=== PATIENT | male | born 1965 | race Caucasian/White ===

== ENCOUNTER 2024-07-31 16:10 | Inpatient (IN) | payer OTHER, SELFPAY ==
[2024-07-31] VITALS (8 sets, daily range): BP systolic 94–139; BP diastolic 48–82; BMI 28.2; BMI 28.3
[2024-07-31 04:15] LABS: % Basophils 1.1 % (0-2); % Eosinophils 10.9 % (0-6); % Immature Granulocytes 0.4 % (0-0.5); % Monocytes 8.1 % (1.7-9.3); % Neutrophils 60.5 % (42.2-75.2); Absolute Basophils 0.1 10^3/uL (0-0.2); Absolute Eosinophils 0.9 10^3/uL (0-0.7); Absolute Lymphocytes 1.6 10^3/uL (1.2-3.4); Absolute Monocytes 0.7 10^3/uL (0.1-0.6); Absolute Neutrophils 5.1 10^3/uL (1.4-6.5); Hematocrit 39.3 % (39.0-52.0); Hemoglobin 13.8 g/dL (13.0-18.0); Mean Corp Hgb Conc. 35.1 g/dL (33.0-37.0); Mean Corpuscular Hgb 31.7 pg (27.0-31.0); Mean Corpuscular Volume 90.3 fL (80.0-94.0); Mean Platelet Volume 9.8 fL (7.4-10.4); Nucleated Red Blood Cells % 0.2 % (-); Platelet Count 234 10^3/uL (130-400); Red Blood Cell Count 4.35 10^6/uL (4.70-6.10); Red Cell Dist. Width 13.8 % (11.5-14.5); White Blood Cell Count 8.4 10^3/uL (4.8-10.8)
[2024-07-31 04:24] LABS: INR 1.92; PT 22.1 Sec (11.4-14.6)
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
[2024-07-31 04:43] LABS: ALT (SGPT) 31 U/L (0-50); AST (SGOT) 33 U/L (17-59); Alkaline Phosphatase 82 U/L (38-126); Blood Urea Nitrogen 32 mg/dl (9-20); Calcium 8.9 mg/dl (8.4-10.2); Carbon Dioxide 23 mmol/L (22-30); Chloride 111 mmol/L (98-107); Estimated Creatinine Clearance 73 ml/min; Glucose 114 mg/dl (70-99); Potassium 4.1 mmol/L (3.5-5.1); Sodium 143 mmol/L (135-145); Total Bilirubin 0.5 mg/dl (0.2-1.3); Total Protein 6.8 g/dl (6.3-8.2); eGFR > 60.00
[2024-07-31] MEDS: MORPHINE SULFATE 4 MG IV (04:45)
[2024-07-31] MEDS: ZOSYN 50 IV ×4 (04:47→22:02)
[2024-07-31] MEDS: VANCOCIN 540 MG IV (05:25)
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
--- NOTE | 2024-07-31 08:01 | PHA.VAN.IN ---
Assessment
- Assessment
Renal Function: Appears similar to baseline
AUC Dosing Plan
- Dosing Variables
Dosing Weight (kg): 79
Dosing CrCl (ml/min): 73
Vd coefficient (L/kg): 0.7
- Empiric Dosing
Initial / Loading Dose: 2000mg - 07/31 05:25
Maintenance Regimen: Vanc 750mg Q12H starting at 1800
Estimated AUC (mcg*h/mL): 431
Estimated Peak (mcg*h/mL): 25
Estimated Trough (mcg/ml): 12.3
Estimated Half Life (H): 10.7
- Monitoring
No levels ordered at this time: consider levels in next few days
Pharmacokinetics Vancomycin I
- -
Patient Age: 59
Patient Sex: Male
Vancomycin Day #: 1
Indication: Skin And Soft Tissue
Requesting Provider: Haresh Adrian
Pertinent Antimicrobial Allergies:
sulfonamide antibiotics - rash
Height / Weight:
Height 5 ft 6 in
Actual Weight 79.3 kg
- Vital Signs / Lab Results
Temp Pulse Resp BP Pulse Ox
98.8 F 68 18 94/48 93
07/31/24 03:03 07/31/24 05:00 07/31/24 05:00 07/31/24 06:00 07/31/24 06:00
Lab Results - Hematology
07/31/24
04:04
WBC 8.4
Lab Results - Chemistry
07/31/24
04:04
BUN 32 H
Creatinine 1.0
Estimated Creat Clear 73
Albumin 4.0
07/31/24 07/31/24
04:04 08:15
Lactic Acid 1.0 Cancelled
--- NOTE | 2024-07-31 08:11 | PHANOTE ---
med rec note- patient currently not filling Norvasc or Flomax
[2024-07-31] MEDS: PROTONIX 20 MG PO (08:38)
[2024-07-31] MEDS: NORVASC 2.5 MG PO (08:38)
[2024-07-31] MEDS: FLOMAX 0.4 MG PO (08:38)
--- NOTE | 2024-07-31 09:35 | W.PN.HOSP.TC ---
Today's Communication/Plan
-
See plan
Assessment / Plan
Assessment / Plan
Impression:
Left lower extremity cellulitis
Other conditions:
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 Status post IAT 07/06.
History of lower extremity DVT and PE
Anticoagulation with Coumadin.
Essential hypertension
Dyslipidemia
BPH
Multisubstance abuse (methamphetamine, fentanyl, EtOH)
Tobacco use disorder
Plan:
Left lower extremity cellulitis
Nonpurulent
Extensive area of involvement from left knee to the foot.
No systemic symptoms on presentation
Reasonable concern for NF
Check CT scan of the left lower extremity rule out collection no necrotizing fasciitis
Broad-spectrum antibiotics: Vancomycin/Zosyn
ID consultation
Close clinical monitoring
History of left MCA territory infarct in the settings of methamphetamine use requiring IAT.
Currently not on any antiplatelet agents.
Essential hypertension.
Dyslipidemia.
Continue amlodipine and Norvasc
History of DVT with extensive PE with right heart strain/cor pulmonale.
Update lower extremity Doppler
Continue Coumadin with goal of INR 2-3. Adjust Coumadin dosing if required while on antibiotics
Patient previously on Eliquis could not recall reasoning for Coumadin transitioning.
BPH with history of retention.
Continue Flomax
Polysubstance abuse.
Patient denies current use
Urine drug screen
Full code
DVT prophylaxis/Coumadin
Anticipated Discharge: 24 - 48 hours
Subjective/Interval History
-
Date of Service: July 31, 2024
Objective Data
-
Labs:
Laboratory Results
07/31/24 07/31/24
04:04 04:07
WBC 8.4
Hgb 13.8
Hct 39.3
Plt Count 234
PT 22.1 H
INR 1.92
Sodium 143
Potassium 4.1
Chloride 111 H
Carbon Dioxide 23
BUN 32 H
Creatinine 1.0
Glucose 114 H
Calcium 8.9
Total Bilirubin 0.5
AST 33
ALT 31
Alkaline Phosphatase 82
Vital Signs:
Vital Signs
Temp Pulse Resp BP Pulse Ox
98.4 F 69 16 100/63 95
07/31/24 08:51 07/31/24 08:51 07/31/24 08:51 07/31/24 08:51 07/31/24 08:51
Physical Exam
-
General: Well Developed and No Apparent Distress
HEENT: Normocephalic, Atraumatic and Moist Mucous Membranes
Respiratory: Clear to Auscultation
Cardiac: Regular Rhythm and S1/S2; Negative Murmur, Rub or Gallop
GI: Soft, Nontender, Nondistended and Normal Bowel Sounds; Negative Organomegaly
Rectal: Deferred by Provider
Musculoskeletal: No Clubbing, No Cyanosis and No Edema
Skin: Other (Left lower extremity erythema, induration and tenderness on palpation without fluctuance. Extensive area of involvement from ankle to knee.); Negative Rash
Neuro: Nonfocal/Grossly Intact
[2024-07-31] MEDS: VANCOCIN 150 IV (17:33)
[2024-07-31] MEDS: COUMADIN 7.5 MG PO (17:33)
[2024-07-31] MEDS: LIPITOR 40 MG PO (17:33)
[2024-07-31 17:58] LABS: Amphetamines Positive (Negative); Barbiturates Negative (Negative); Benzodiazepines Negative (Negative); Buprenorphine Negative (Negative); Cocaine Negative (Negative); Marijuana Negative (Negative); Methadone Negative (Negative); Methamphetamines Positive (Negative); Opiates Positive (Negative); Phencyclidine Negative (Negative); Tricyclic Antidepressants Negative (Negative)
[2024-07-31 18:17] LABS: Fentanyl, Urine Negative (Negative)
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
[2024-08-01] MEDS: ZOSYN 50 IV ×4 (04:03→21:23)
[2024-08-01] MEDS: VANCOCIN 150 IV ×2 (05:26→17:10)
[2024-08-01 07:13] VITALS: BP 123/76
[2024-08-01 08:03] LABS: % Basophils 0.7 % (0-2); % Immature Granulocytes 0.1 % (0-0.5); % Lymphocytes 15.9 % (20.5-51.1); % Monocytes 7.4 % (1.7-9.3); % Neutrophils 62.9 % (42.2-75.2); Absolute Basophils 0.1 10^3/uL (0-0.2); Absolute Eosinophils 0.9 10^3/uL (0-0.7); Absolute Lymphocytes 1.1 10^3/uL (1.2-3.4); Absolute Monocytes 0.5 10^3/uL (0.1-0.6); Absolute Neutrophils 4.2 10^3/uL (1.4-6.5); Hematocrit 39.5 % (39.0-52.0); Hemoglobin 13.9 g/dL (13.0-18.0); Mean Corp Hgb Conc. 35.2 g/dL (33.0-37.0); Mean Corpuscular Hgb 31.6 pg (27.0-31.0); Mean Corpuscular Volume 89.8 fL (80.0-94.0); Mean Platelet Volume 9.8 fL (7.4-10.4); Nucleated Red Blood Cells % 0 % (-); Platelet Count 235 10^3/uL (130-400); Red Cell Dist. Width 13.5 % (11.5-14.5); White Blood Cell Count 6.8 10^3/uL (4.8-10.8)
[2024-08-01 08:12] LABS: INR 2.98; PT 31.3 Sec (11.4-14.6)
[2024-08-01] MEDS: FLOMAX 0.4 MG PO (09:49)
[2024-08-01] MEDS: NORVASC 2.5 MG PO (09:49)
[2024-08-01] MEDS: PROTONIX 20 MG PO (09:49)
[2024-08-01 11:07] LABS: Blood Urea Nitrogen 19 mg/dl (9-20); Calcium 8.2 mg/dl (8.4-10.2); Carbon Dioxide 23 mmol/L (22-30); Chloride 109 mmol/L (98-107); Estimated Creatinine Clearance 81 ml/min; Glucose 103 mg/dl (70-99); Sodium 138 mmol/L (135-145); eGFR > 60.00
[2024-08-01 11:23] LABS: Potassium 4.6 mmol/L (3.5-5.1)
--- NOTE | 2024-08-01 14:12 | W.PN.HOSP.TC ---
Today's Communication/Plan
-
Continue IV antibiotics and monitor response closely.
Follow blood cultures.
Hold Coumadin tonight (INR 2.98)
Assessment / Plan
Assessment / Plan
Impression:
Left lower extremity cellulitis
Other conditions:
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 Status post IAT 07/06.
History of lower extremity DVT and PE
Anticoagulation with Coumadin.
Essential hypertension
Dyslipidemia
BPH
Multisubstance abuse (methamphetamine, fentanyl, EtOH)
Tobacco use disorder
Plan:
Left lower extremity cellulitis
Nonpurulent
Extensive area of involvement from left knee to the foot.
No systemic symptoms on presentation
Reasonable concern for NF
Check CT scan of the left lower extremity with no evidence of soft tissue collection or gas. Consistent with cellulitis
Noted some improvement with reduction of area induration and erythema today on 08/01
Continue IV antibiotics, currently on vancomycin and Zosyn
Close clinical monitoring
History of left MCA territory infarct in the settings of methamphetamine use requiring IAT.
Currently not on any antiplatelet agents.
Essential hypertension.
Dyslipidemia.
Continue amlodipine and Norvasc
History of DVT with extensive PE with right heart strain/cor pulmonale.
Update lower extremity Doppler
Continue Coumadin with goal of INR 2-3. Adjust Coumadin dosing if required while on antibiotics
Patient previously on Eliquis could not recall reasoning for Coumadin transitioning.
BPH with history of retention.
Continue Flomax
Polysubstance abuse.
Patient denies current use
Urine drug screen positive for opiates, amphetamines methamphetamines
Full code
DVT prophylaxis/Coumadin
Anticipated Discharge: 24 - 48 hours
Subjective/Interval History
-
Date of Service: August 01, 2024
Objective Data
-
Labs:
Laboratory Results
06/26/25
07:37
WBC 6.8
Hgb 13.9
Hct 39.5
Plt Count 235
PT 31.3 H
INR 2.98
Sodium 138
Potassium 4.6
Chloride 109 H
Carbon Dioxide 23
BUN 19
Creatinine 0.9
Glucose 103 H
Calcium 8.2 L
Vital Signs:
Vital Signs
Temp Pulse Resp BP Pulse Ox
97.4 F 65 18 123/76 97
08/01/24 07:13 08/01/24 09:49 08/01/24 07:13 08/01/24 09:49 08/01/24 07:13
I&O
07/31/24 08/01/24 08/02/24
06:59 06:59 06:59
Intake Total 790 / 790
Output Total 1625 / 1625
Balance -835 / -835
Physical Exam
-
General: Well Developed and No Apparent Distress
HEENT: Normocephalic, Atraumatic and Moist Mucous Membranes
Respiratory: Clear to Auscultation
Cardiac: Regular Rhythm and S1/S2; Negative Murmur, Rub or Gallop
GI: Soft, Nontender, Nondistended and Normal Bowel Sounds; Negative Organomegaly
Rectal: Deferred by Provider
Musculoskeletal: No Clubbing, No Cyanosis and No Edema
Skin: Other (Left lower extremity erythema, induration and tenderness on palpation without fluctuance. Extensive area of involvement from ankle to knee.); Negative Rash
Neuro: Nonfocal/Grossly Intact
--- NOTE | 2024-08-01 15:05 | CM ---
corridor redevelopment manager reviewed patient's chart and met with patient and patient reports that his significant other lives with him patient is independent with adl's and ambulation, no dme, patient states he does not have a PCP.
Pharmacy: [facility].
Plan; Home when stable.
[2024-08-01 15:46] VITALS: BP 108/60
--- NOTE | 2024-08-01 16:31 | PHA.VAN.FU ---
Vancomycin Assessment / Plan
- Assessment
Renal Function: Stable
WBC's are: WNL
In the past 24 hrs, patient has been: Afebrile
Concomitant Antimicrobials: piperacillin/tazobactam
- Dosing Plan
Continue: Vanc 750mg Q12H
- Monitoring Plan
No level(s) ordered at this time: consider levels in next few days
- Follow Up
Pharmacy will continue to follow.
Vancomycin Follow UP
- -
Patient Age: 59
Patient Sex: Male
Vancomycin Day #: 2
Indication: Skin And Soft Tissue
Requesting Provider: Haresh Adrian / Dr. Tipton
Pertinent Antimicrobial Allergies:
sulfonamide antibiotics - rash
Height / Weight:
Height 5 ft 6 in
Actual Weight 79.56 kg
- Vital Signs / Lab Results
Temp Pulse Resp BP Pulse Ox
97.4 F 65 18 108/60 100
08/01/24 15:46 08/01/24 15:46 08/01/24 15:46 08/01/24 15:46 08/01/24 15:46
Lab Results - Hematology
07/31/24 08/01/24
04:04 07:37
WBC 8.4 6.8
Lab Results - Chemistry
07/31/24 08/01/24
04:04 07:37
BUN 32 H 19
Creatinine 1.0 0.9
Estimated Creat Clear 73 81
Albumin 4.0
07/31/24 07/31/24
04:04 08:15
Lactic Acid 1.0 Cancelled
Microbiology Results
07/31/24 04:17 Blood Culture - Preliminary
Blood/Venous No Growth in 24 hours- Final report to follow
07/31/24 04:04 Blood Culture - Preliminary
Blood/Venous No Growth in 24 hours- Final report to follow
07/31/24 08:37 Nasal Screen MRSA (PCR) - Final
Nose MRSA not detected - performed by PCR methodology.
[2024-08-01] MEDS: LIPITOR 40 MG PO (17:10)
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
[2024-08-01 23:00] VITALS: BP 130/67
[2024-08-02] MEDS: ZOSYN 50 IV ×4 (04:56→21:16)
[2024-08-02] MEDS: VANCOCIN 150 IV (05:54)
[2024-08-02 07:25] VITALS: BP 111/73
[2024-08-02] MEDS: PROTONIX 20 MG PO (09:07)
[2024-08-02] MEDS: NORVASC 2.5 MG PO (09:07)
[2024-08-02] MEDS: FLOMAX 0.4 MG PO (09:08)
[2024-08-02 09:18] LABS: % Basophils 0.5 % (0-2); % Eosinophils 15.5 % (0-6); % Immature Granulocytes 0.3 % (0-0.5); % Lymphocytes 13.3 % (20.5-51.1); % Neutrophils 63.4 % (42.2-75.2); Absolute Eosinophils 1.2 10^3/uL (0-0.7); Absolute Monocytes 0.5 10^3/uL (0.1-0.6); Absolute Neutrophils 4.8 10^3/uL (1.4-6.5); Hematocrit 46.2 % (39.0-52.0); Hemoglobin 16.1 g/dL (13.0-18.0); Mean Corp Hgb Conc. 34.8 g/dL (33.0-37.0); Mean Corpuscular Hgb 31.3 pg (27.0-31.0); Mean Corpuscular Volume 89.9 fL (80.0-94.0); Mean Platelet Volume 9.7 fL (7.4-10.4); Nucleated Red Blood Cells % 0 % (-); Platelet Count 271 10^3/uL (130-400); Red Blood Cell Count 5.14 10^6/uL (4.70-6.10); Red Cell Dist. Width 13.6 % (11.5-14.5); White Blood Cell Count 7.5 10^3/uL (4.8-10.8)
[2024-08-02 09:27] LABS: INR 2.39; PT 26.1 Sec (11.4-14.6)
[2024-08-02 09:44] LABS: Blood Urea Nitrogen 14 mg/dl (9-20); Calcium 8.8 mg/dl (8.4-10.2); Carbon Dioxide 22 mmol/L (22-30); Chloride 109 mmol/L (98-107); Estimated Creatinine Clearance 73 ml/min; Glucose 112 mg/dl (70-99); Potassium 4.4 mmol/L (3.5-5.1); Sodium 139 mmol/L (135-145); eGFR > 60.00
--- NOTE | 2024-08-02 11:26 | CM ---
Chart reviewed, plan is to home when stable.
Plan; Home when stable.
--- NOTE | 2024-08-02 13:46 | W.PN.HOSP.TC ---
Today's Communication/Plan
-
Significant improvement, although remains with significant cellulitic area
Continue IV antibiotics for another 24 to 48 hours
Urine drug screen noted with multisubstance including methamphetamine, although so far with no evidence of withdrawal. Monitor closely..
Assessment / Plan
Assessment / Plan
Impression:
Left lower extremity cellulitis
Other conditions:
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 Status post IAT 07/06.
History of lower extremity DVT and PE
Anticoagulation with Coumadin.
Essential hypertension
Dyslipidemia
BPH
Multisubstance abuse (methamphetamine, fentanyl, EtOH)
Tobacco use disorder
Plan:
Left lower extremity cellulitis
Nonpurulent
Extensive area of involvement from left knee to the foot.
No systemic symptoms on presentation
Reasonable concern for NF
Check CT scan of the left lower extremity with no evidence of soft tissue collection or gas. Consistent with cellulitis
Noted some improvement with reduction of area induration and erythema today on 08/01
Continue IV antibiotics. Empiric treatment with vancomycin and Zosyn. MRSA negative. Antibiotics narrowed to Zosyn alone.
Close clinical monitoring
History of left MCA territory infarct in the settings of methamphetamine use requiring IAT.
Currently not on any antiplatelet agents.
Essential hypertension.
Dyslipidemia.
Continue amlodipine and Norvasc
History of DVT with extensive PE with right heart strain/cor pulmonale.
Update lower extremity Doppler
Continue Coumadin with goal of INR 2-3. Adjust Coumadin dosing if required while on antibiotics
Patient previously on Eliquis could not recall reasoning for Coumadin transitioning.
BPH with history of retention.
Continue Flomax
Polysubstance abuse.
Patient denies current use
Urine drug screen positive for opiates, amphetamines methamphetamines
Full code
DVT prophylaxis/Coumadin
Anticipated Discharge: 24 - 48 hours
Subjective/Interval History
-
Date of Service: August 02, 2024
Objective Data
-
Labs:
Laboratory Results
08/02/24
08:52
WBC 7.5
Hgb 16.1
Hct 46.2
Plt Count 271
PT 26.1 H
INR 2.39
Sodium 139
Potassium 4.4
Chloride 109 H
Carbon Dioxide 22
BUN 14
Creatinine 1.0
Glucose 112 H
Calcium 8.8
Vital Signs:
Vital Signs
Temp Pulse Resp BP Pulse Ox
97.5 F 61 16 111/73 97
08/02/24 07:25 08/02/24 09:07 08/02/24 07:25 08/02/24 09:07 08/02/24 08:26
I&O
08/01/24 08/02/24 08/03/24
06:59 06:59 06:59
Intake Total 790 / 790 960 / 960
Output Total 1625 / 1625 2800 / 2800
Balance -835 / -835 -1840 / -1840
Physical Exam
-
General: Well Developed and No Apparent Distress
HEENT: Normocephalic, Atraumatic and Moist Mucous Membranes
Respiratory: Clear to Auscultation
Cardiac: Regular Rhythm and S1/S2; Negative Murmur, Rub or Gallop
GI: Soft, Nontender, Nondistended and Normal Bowel Sounds; Negative Organomegaly
Rectal: Deferred by Provider
Musculoskeletal: No Clubbing, No Cyanosis and No Edema
Skin: Other (Left lower extremity erythema, induration and tenderness on palpation without fluctuance. Extensive area of involvement from ankle to knee.); Negative Rash
Neuro: Nonfocal/Grossly Intact
[2024-08-02] MEDS: HYDROPHOR 1 APPLIC TOPICAL (15:11)
[2024-08-02] MEDS: LIPITOR 40 MG PO (15:15)
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
[2024-08-02 15:41] VITALS: BP 112/77
[2024-08-02 23:46] VITALS: BP 114/60
[2024-08-03] MEDS: ZOSYN 50 IV ×4 (03:47→21:07)
[2024-08-03 07:13] VITALS: BP 135/75
[2024-08-03] MEDS: PROTONIX 20 MG PO (08:25)
[2024-08-03] MEDS: FLOMAX 0.4 MG PO (08:25)
[2024-08-03] MEDS: NORVASC 2.5 MG PO (08:25)
[2024-08-03] MEDS: HYDROPHOR 1 APPLIC TOPICAL ×2 (08:33→16:12)
--- NOTE | 2024-08-03 14:52 | W.PN.HOSP.TC ---
Today's Communication/Plan
-
Continue current care
Assessment / Plan
Assessment / Plan
Impression:
Left lower extremity cellulitis
Other conditions:
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 Status post IAT 07/06.
History of lower extremity DVT and PE
Anticoagulation with Coumadin.
Essential hypertension
Dyslipidemia
BPH
Multisubstance abuse (methamphetamine, fentanyl, EtOH)
Tobacco use disorder
Plan:
1. Left lower extremity cellulitis, Nonpurulent with Extensive area of involvement from left knee to the foot.
No systemic symptoms on presentation
Reasonable concern for NF
Checked CT scan of the left lower extremity with no evidence of soft tissue collection or gas. Consistent with cellulitis
Noted some improvement with reduction of area induration and erythema today on 08/01
Continue IV antibiotics.
Empiric treatment with vancomycin and Zosyn.
MRSA negative.
Antibiotics narrowed to Zosyn alone.
Close clinical monitoring
2. History of left MCA territory infarct in the settings of methamphetamine use requiring IAT.
Currently not on any antiplatelet agents.
Essential hypertension.
Dyslipidemia.
Continue amlodipine and Norvasc
3. History of DVT with extensive PE with right heart strain/cor pulmonale.
Update lower extremity Doppler
Continue Coumadin with goal of INR 2-3. INR today 2.39
Adjust Coumadin dosing if required while on antibiotics
Patient previously on Eliquis could not recall reasoning for Coumadin transitioning.
4. BPH with history of retention.
Continue Flomax
5. Polysubstance abuse.
Patient denies current use
Urine drug screen positive for opiates, amphetamines methamphetamines
Full code
DVT prophylaxis/Coumadin
Anticipated Discharge: 24 - 48 hours
Subjective/Interval History
-
Date of Service: August 03, 2024
No new issues or complaints
Objective Data
-
Vital Signs:
Vital Signs
Temp Pulse Resp BP Pulse Ox
97.7 F 64 18 135/75 96
08/03/24 07:13 08/03/24 08:25 08/03/24 07:13 08/03/24 08:25 08/03/24 07:13
I&O
08/02/24 08/03/24 08/04/24
06:59 06:59 06:59
Intake Total 960 / 960 1440 / 1440
Output Total 2800 / 2800 700 / 700
Balance -1840 / -1840 740 / 740
Review of Systems
-
History Source: Patient
All other systems: Reviewed and negative
Physical Exam
-
General: Well Developed, Well Nourished, No Apparent Distress and Comfortable
HEENT: Nose Appears Normal and Ears Appear Normal
Respiratory: Clear to Auscultation
Cardiac: Regular Rhythm and S1/S2
GI: Soft, Nontender and Nondistended
Musculoskeletal: No Clubbing and No Cyanosis
Skin: Warm and Dry
Neuro: Awake, Alert and Oriented
Psych: Calm
Data Reviewed
-
Labs: Labs Reviewed by me
[2024-08-03 15:39] VITALS: BP 117/55
[2024-08-03] MEDS: LIPITOR 40 MG PO (16:12)
[2024-08-03 23:02] VITALS: BP 107/59
[2024-08-04] MEDS: ZOSYN 50 IV ×3 (03:06→21:55)
[2024-08-04 06:47] LABS: Hematocrit 41.5 % (39.0-52.0); Hemoglobin 14.5 g/dL (13.0-18.0); Mean Corp Hgb Conc. 34.9 g/dL (33.0-37.0); Mean Corpuscular Hgb 31.3 pg (27.0-31.0); Mean Corpuscular Volume 89.4 fL (80.0-94.0); Platelet Count 264 10^3/uL (130-400); Red Blood Cell Count 4.64 10^6/uL (4.70-6.10); Red Cell Dist. Width 13.5 % (11.5-14.5); White Blood Cell Count 6.9 10^3/uL (4.8-10.8)
[2024-08-04 06:57] LABS: INR 1.36
[2024-08-04 07:19] LABS: Blood Urea Nitrogen 18 mg/dl (9-20); Calcium 8.7 mg/dl (8.4-10.2); Carbon Dioxide 24 mmol/L (22-30); Chloride 109 mmol/L (98-107); Estimated Creatinine Clearance 73 ml/min; Glucose 100 mg/dl (70-99); Potassium 4.3 mmol/L (3.5-5.1); Sodium 141 mmol/L (135-145); eGFR > 60.00
[2024-08-04 07:37] VITALS: BP 109/67
[2024-08-04] MEDS: PROTONIX 20 MG PO (08:20)
[2024-08-04] MEDS: NORVASC 2.5 MG PO (08:20)
[2024-08-04] MEDS: FLOMAX 0.4 MG PO (08:20)
--- NOTE | 2024-08-04 11:37 | W.PN.ID1 ---
Date of Service
Date of Service: August 04, 2024
Today's Communication
Continue antibiotics.
Assessment / Plan
LLE cellulitis; improved.
Hx EtOH use/abuse
Hx CVA (MCA territory)
Hx PE
Polysubstance abuse (UDS with positive for opiates, amphetamines methamphetamines)
Recommendations:
Narrow abx to cefazolin 2 gm IV q8h
At D/C, transition to oral keflex 500mg QID, to continue through 08/11/2024
����������������������������������������������������������
Chief Complaint
-: Cellulitis (CT without abscess, ostomyelitis ) and Other (left ankle pain)
Subjective / Review of Systems
Patient seen and examined. Reports marked improvement in LLE / ankle discomfort.
Review of Systems: No Fever and No Chills
Vital Signs / Physical Exam
Vital Signs
Vital Signs
Temp Pulse Resp BP Pulse Ox
97.7 F 62 20 109/67 97
08/04/24 07:37 08/04/24 07:37 08/04/24 07:37 08/04/24 07:37 08/04/24 07:37
Physical Exam
Constitutional: No Acute Distress and Comfortable
Eyes: Sclera Anicteric
Cardiovascular: S1/S2; Negative S3/S4
Pulmonary: Non Labored
Gastrointestinal: Soft and Non Tender
Extremities: Other (Erythema and superficial crusting noted of the left medial ankle/distal calf.)
Neurological: Awake and Alert
Psychological: Calm
Objective Data
Lab Data
Lab Results
08/04/24 05:40
08/04/24 05:40
PT 17.0 Sec (11.4-14.6) H 08/04/24 05:40
INR 1.36 08/04/24 05:40
Estimated Creat Clear 73 ml/min 08/04/24 05:40
Lactic Acid Cancelled 07/31/24 08:15
Total Bilirubin 0.5 mg/dl (0.2-1.3) 07/31/24 04:04
AST 33 U/L (17-59) 07/31/24 04:04
ALT 31 U/L (0-50) 07/31/24 04:04
Alkaline Phosphatase 82 U/L (38-126) 07/31/24 04:04
Most recent labs reviewed.
Micro Results:
07/31/24 04:17 Blood Culture - Preliminary
Blood/Venous No Growth in 4 days- Final report to follow
07/31/24 04:04 Blood Culture - Preliminary
Blood/Venous No Growth in 4 days- Final report to follow
07/31/24 08:37 Nasal Screen MRSA (PCR) - Final
Nose MRSA not detected - performed by PCR methodology.
[2024-08-04] MEDS: ANCEF 10 IV (12:26)
--- NOTE | 2024-08-04 12:34 | W.PN.HOSP.TC ---
Today's Communication/Plan
-
Continue antibiotics, Coumadin dose adjusted today.
Assessment / Plan
Assessment / Plan
Impression:
Left lower extremity cellulitis
Other conditions:
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 Status post IAT 07/06.
History of lower extremity DVT and PE
Anticoagulation with Coumadin.
Essential hypertension
Dyslipidemia
BPH
Multisubstance abuse (methamphetamine, fentanyl, EtOH)
Tobacco use disorder
Plan:
1. Left lower extremity cellulitis, Nonpurulent with Extensive area of involvement from left knee to the foot. - improving
No systemic symptoms on presentation
Reasonable concern for NF
Checked CT scan of the left lower extremity with no evidence of soft tissue collection or gas. Consistent with cellulitis
Noted some improvement with reduction of area induration and erythema today on 08/04
Continue IV antibiotics.
Empiric treatment initially with vancomycin and Zosyn.
MRSA negative.
Antibiotics narrowed to Zosyn alone.
Close clinical monitoring
ID helping co-manage
2. History of left MCA territory infarct in the settings of methamphetamine use requiring IAT.
Currently not on any antiplatelet agents.
Essential hypertension.
Dyslipidemia.
Continue amlodipine and Norvasc
3. History of DVT with extensive PE with right heart strain/cor pulmonale.
Update lower extremity Doppler
Continue Coumadin with goal of INR 2-3. INR today 1.36
Adjust Coumadin dosing if required while on antibiotics
Patient previously on Eliquis could not recall reasoning for Coumadin transitioning.
4. BPH with history of retention.
Continue Flomax
5. Polysubstance abuse.
Patient denies current use
Urine drug screen positive for opiates, amphetamines methamphetamines
Full code
DVT prophylaxis/Coumadin
Anticipated Discharge: 24 - 48 hours
Subjective/Interval History
-
Date of Service: August 04, 2024
Some itching at lower leg, otherwise feels OK
Objective Data
-
Labs:
Laboratory Results
08/04/24
05:40
WBC 6.9
Hgb 14.5
Hct 41.5
Plt Count 264
PT 17.0 H
INR 1.36
Sodium 141
Potassium 4.3
Chloride 109 H
Carbon Dioxide 24
BUN 18
Creatinine 1.0
Glucose 100 H
Calcium 8.7
Vital Signs:
Vital Signs
Temp Pulse Resp BP Pulse Ox
97.7 F 62 20 109/67 97
08/04/24 07:37 08/04/24 07:37 08/04/24 07:37 08/04/24 07:37 08/04/24 07:37
I&O
08/03/24 08/04/24 08/05/24
06:59 06:59 06:59
Intake Total 1440 / 1440 1780 / 1780
Output Total 700 / 700 900 / 900
Balance 740 / 740 880 / 880
Review of Systems
-
History Source: Patient
All other systems: Reviewed and negative
Physical Exam
-
General: Well Developed, Well Nourished, No Apparent Distress and Comfortable
HEENT: [place] Conjunctivae, Nose Appears Normal and Ears Appear Normal
Respiratory: Clear to Auscultation
Cardiac: Regular Rhythm and S1/S2
GI: Soft, Nontender and Nondistended
Musculoskeletal: No Clubbing, No Cyanosis and No Edema
Skin: Warm
Neuro: Awake, Alert and Oriented
Psych: Calm
Data Reviewed
-
Labs: Labs Reviewed by me
[2024-08-04 15:10] VITALS: BP 113/71
[2024-08-04] MEDS: COUMADIN 7.5 MG PO (17:49)
[2024-08-04] MEDS: LIPITOR 40 MG PO (17:49)
[2024-08-04] MEDS: ANCEF IV ×2 (20:35→20:38)
[2024-08-04 23:59] VITALS: BP 105/62
[2024-08-05] MEDS: ZOSYN 50 IV ×2 (03:34→09:58)
[2024-08-05 08:09] VITALS: BP 130/89
[2024-08-05 08:12] LABS: Hematocrit 42.3 % (39.0-52.0); Hemoglobin 14.8 g/dL (13.0-18.0); Mean Corpuscular Hgb 31.4 pg (27.0-31.0); Mean Corpuscular Volume 89.8 fL (80.0-94.0); Platelet Count 267 10^3/uL (130-400); Red Blood Cell Count 4.71 10^6/uL (4.70-6.10); Red Cell Dist. Width 13.2 % (11.5-14.5); White Blood Cell Count 6.7 10^3/uL (4.8-10.8)
[2024-08-05 08:16] LABS: INR 1.27; PT 16.2 Sec (11.4-14.6)
[2024-08-05 09:11] LABS: Blood Urea Nitrogen 18 mg/dl (9-20); Calcium 8.7 mg/dl (8.4-10.2); Carbon Dioxide 22 mmol/L (22-30); Chloride 110 mmol/L (98-107); Estimated Creatinine Clearance 73 ml/min; Glucose 99 mg/dl (70-99); Potassium 4.5 mmol/L (3.5-5.1); Sodium 142 mmol/L (135-145); eGFR > 60.00
[2024-08-05] MEDS: NORVASC 2.5 MG PO (09:57)
[2024-08-05] MEDS: FLOMAX 0.4 MG PO (09:58)
[2024-08-05] MEDS: PROTONIX 20 MG PO (09:58)
--- NOTE | 2024-08-05 10:22 | CM ---
Addendum entered by Yuli Munguia 08/05/24 15:50:
[facility] to pick patient up at 4:30, IMM completed and placed on chart.
Original Note:
Chart reviewed and patient to return to home on oral ABX, patient is independent with adl's and ambulation.
Plan; Home when stable.
--- NOTE | 2024-08-05 13:54 | W.PN.ID1 ---
Date of Service
Date of Service: August 05, 2024
Today's Communication
Continue antibiotics.
Assessment / Plan
LLE cellulitis; improved.
Hx EtOH use/abuse
Hx CVA (MCA territory)
Hx PE
Polysubstance abuse (UDS with positive for opiates, amphetamines methamphetamines)
Recommendations:
Continue cefazolin 2 gm IV q8h
At D/C, transition to oral keflex 500mg QID, to continue through 08/11/2024
����������������������������������������������������������
Chief Complaint
-: Cellulitis (CT without abscess, ostomyelitis ) and Other (left ankle pain)
Subjective / Review of Systems
Review of Systems: No Fever and No Chills
Vital Signs / Physical Exam
Vital Signs
Vital Signs
Temp Pulse Resp BP Pulse Ox
98 F 61 18 130/89 97
08/05/24 08:09 08/05/24 08:09 08/05/24 08:09 08/05/24 08:09 08/05/24 08:09
Physical Exam
Constitutional: No Acute Distress and Comfortable
Eyes: Sclera Anicteric
Cardiovascular: S1/S2; Negative S3/S4
Pulmonary: Non Labored
Gastrointestinal: Soft and Non Tender
Extremities: Other (Erythema and superficial crusting noted of the left medial ankle/distal calf.)
Neurological: Awake and Alert
Psychological: Calm
Objective Data
Lab Data
Lab Results
08/05/24 07:06
08/05/24 07:06
PT 16.2 Sec (11.4-14.6) H 08/05/24 07:06
INR 1.27 08/05/24 07:06
Estimated Creat Clear 73 ml/min 08/05/24 07:06
Lactic Acid Cancelled 07/31/24 08:15
Total Bilirubin 0.5 mg/dl (0.2-1.3) 07/31/24 04:04
AST 33 U/L (17-59) 07/31/24 04:04
ALT 31 U/L (0-50) 07/31/24 04:04
Alkaline Phosphatase 82 U/L (38-126) 07/31/24 04:04
Most recent labs reviewed.
Micro Results:
07/31/24 04:17 Blood Culture - Final
Blood/Venous No Growth - Final Report
07/31/24 04:04 Blood Culture - Final
Blood/Venous No Growth - Final Report
07/31/24 08:37 Nasal Screen MRSA (PCR) - Final
Nose MRSA not detected - performed by PCR methodology.
--- NOTE | 2024-08-05 15:30 | W.DCSUMMARY ---
Discharge Summary
Discharge Data
Date of Admission: 07/31/24
Date of Discharge: 08/05/24
-
Pending Results: No
Hospital Course
Impression:
Left lower extremity cellulitis
Other conditions:
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 Status post IAT 07/06.
History of lower extremity DVT and PE
Anticoagulation with Coumadin.
Essential hypertension
Dyslipidemia
BPH
Multisubstance abuse (methamphetamine, fentanyl, EtOH)
Tobacco use disorder
Plan:
1. Left lower extremity cellulitis, Nonpurulent with Extensive area of involvement from left knee to the foot. - improving
No systemic symptoms on presentation
Reasonable concern for NF
Checked CT scan of the left lower extremity with no evidence of soft tissue collection or gas. Consistent with cellulitis
Noted some improvement with reduction of area induration and erythema today on 08/04
MRSA negative.
Improved with minimal residual erythema. Transition sergey Keflex upon discharge through 08/11
2. History of left MCA territory infarct in the settings of methamphetamine use requiring IAT.
Currently not on any antiplatelet agents.
Essential hypertension.
Dyslipidemia.
Continue amlodipine and Norvasc
3. History of DVT with extensive PE with right heart strain/cor pulmonale.
Update lower extremity Doppler
Continue Coumadin with goal of INR 2-3.
Adjust Coumadin dosing if required while on antibiotics
Patient previously on Eliquis could not recall reasoning for Coumadin transitioning.
4. BPH with history of retention.
Continue Flomax
5. Polysubstance abuse.
Patient denies current use
Urine drug screen positive for opiates, amphetamines methamphetamines
Discharge Plan
-
Patient Disposition: Home (Routine Discharge)
Discharge Diagnosis/Procedures: LLE celluites
Condition: Good
Diet: Regular
Referrals:
UNKNOWN - PT DOES,NOT KNOW [Family Provider]
Prescriptions:
New
cephalexin 500 mg capsule
500 mg PO QID Qty: 24 0RF
Continued
warfarin 5 mg Tablet
7.5 mg PO QPM
pantoprazole 20 mg Tablet,Delayed Release (Dr/Ec)
20 mg PO DAILY Qty: 30 0RF
atorvastatin 40 mg Tablet
40 mg PO QPM Qty: 30 0RF
amlodipine 2.5 mg Tablet
2.5 mg PO DAILY Qty: 30 0RF
tamsulosin 0.4 MG capsule
0.4 mg PO DAILY Qty: 30 0RF
Discharge Orders:
Discharge Patient (As Directed); Ordered 08/05/24
Ordered By: Chuckie Christianson
Discharge Date and Time
Print Language: LITHUANIAN
[2024-08-05 15:45] VITALS: BP 98/60
== END 2024-08-05 18:25 | disposition home or self-care (01) | DRG 603 ==
LOC: 4 WEST ACU 16:10
PROVIDERS: Internal Medicine; Nurse Practitioner Family; ADMITTING PHYSICIAN Internal Medicine; ATTENDING PHYSICIAN Internal Medicine; EMERGENCY PHYSICIAN Student in an Organized Health Care Education/Training Program; OTHER PHYSICIAN Hospitalist
DX: L03.116 Cellulitis of left lower limb (principal); Z86.73 Personal history of transient ischemic attack (TIA), and cerebral infarction without residual deficits; Z86.718 Personal history of other venous thrombosis and embolism; I10 Essential (primary) hypertension; E78.5 Hyperlipidemia, unspecified; N40.0 Benign prostatic hyperplasia without lower urinary tract symptoms; F17.200 Nicotine dependence, unspecified, uncomplicated; F15.10 Other stimulant abuse, uncomplicated; I27.81 Cor pulmonale (chronic); F10.11 Alcohol abuse, in remission; Z79.01 Long term (current) use of anticoagulants; Z86.14 Personal history of Methicillin resistant Staphylococcus aureus infection; Z87.81 Personal history of (healed) traumatic fracture; Z88.2 Allergy status to sulfonamides
CPT/HCPCS: 73701; 80048; 80053; 80306; 80307; 83605; 85025; 85027; 85610; 87040; 87641; 93970; 96365; 96375; 99285; Q9967